=== PATIENT | male | born 1975 | race African-American/Black ===

== ENCOUNTER 2017-08-18 20:43 | Emergency (ER) | payer OTHER ==
[~2017-08-18] VITALS: Ht 175.3 cm; Wt 179.0 kg
[2017-08-18 23:12] VITALS: BP 127/92
== END 2017-08-18 23:13 | disposition home or self-care (01) ==
LOC: EME 20:43
DX: I10 Essential (primary) hypertension (principal); Z76.0 Encounter for issue of repeat prescription; F17.200 Nicotine dependence, unspecified, uncomplicated
CPT/HCPCS: 99281; 99284